=== PATIENT | female | born 1960 | race Caucasian/White ===

== ENCOUNTER → 2021-02-13 09:45 | Outpatient (CLI) | payer OTHER, SELFPAY ==
[2021-02-13 13:37] LABS: COVID19 -Nasal RAPID Negative (Negative)
== END ==
PROVIDERS: PCP Nurse Practitioner; Visit Provider Surgery
DX: Z20.822 Contact with and (suspected) exposure to COVID-19 (principal); Z01.812 Encounter for preprocedural laboratory examination
CPT/HCPCS: 87635; C9803

== ENCOUNTER 2021-02-16 15:00 | Day surgery (SDC) | payer OTHER, SELFPAY ==
[2021-02-16] VITALS (7 sets, daily range): BP systolic 108–128; BP diastolic 53–64; PULSE 64–74; RESP 12–18; TEMP 35.5–36.8; O2SAT 96–99; BMI 23.1
--- NOTE | 2021-02-16 | PATH_ITS ---
[facility] Accession Number: [id number] . 01 Material submitted: . PART A: colon - ASCENDING POLYP PART B: colon - DISTAL ASCENDING POLYP . 02 Diagnosis: A. Ascending Colon, Polyp, Biopsy: Inflammatory polyp. Negative for dysplasia and malignancy. . B. Distal Ascending Colon, Polyp, Biopsy: Tubular adenoma. BFI 02/18/2021 1404 Local . 02 Electronically signed: . Jigna Prater MD, Pathologist NPI- [id number] . 01 Gross description: . Part A: ASCENDING POLYP: Received in formalin are 2 fragment(s) of calderon, soft tissue measuring 0.7 x 0.3 x 0.2 cm to 0.4 x 0.3 x 0.3 cm submitted entirely in 1 cassette(s) Part B: DISTAL ASCENDING POLYP: Received in formalin are 2 fragment(s) of calderon, soft tissue measuring 0.4 x 0.3 x 0.2 cm to 0.4 x 0.3 x 0.2 cm submitted entirely in 1 cassette(s) /KADEN 02/17/2021 0341 Local . 02 Pathologist provided ICD-10: D12.2 . 02 CPT . 382700, [id number] Performed at: 01 [facility] [address], [place], [place] [id number] MD Steve Perez MD Phone: [phone] Performed at: 02 [facility] [address] [place], [place] [id number] MD Jigna Prater MD Phone: [phone]
--- NOTE | 2021-02-16 16:13 | PM.HP.1 ---
History of Present Illness History of Present Illness Date Patient Seen: 02/16/21 Time Patient Seen: 16:14 Chief complaint: SDC Narrative: screening colon cancer, and h/o reflux Patient History Family & Social History Social History: household members significant other Tobacco & Substance use: Smoking Status Never smoker alcohol intake frequency holiday/special occasion Meds Home Medications and Allergies Home Medications Medication Instructions Recorded Confirmed Type rosuvastatin 5 mg tablet 5 mg 02/16/21 History rosuvastatin 5 mg tablet 5 mg 02/16/21 History Allergies Allergy/AdvReac Type Severity Reaction Status Date / Time No Known Drug Allergies Allergy Verified 02/16/21 15:17 Exam Vital Signs (past 8 hours): - 02/16/21 15:26 Temperature 98.2 F Pulse Rate 64 Respiratory Rate 18 Blood Pressure 125/64 Pulse Oximetry 99 Oxygen Delivery Method Room Air Const General: cooperative Nutritional Appearance: average body habitus HENMT Head: normal to inspection Neck Neck: trachea midline Resp Effort & Inspection: normal respiratory effort and able to speak in complete sentences Cardio Rate: regular rate Rhythm: regular rhythm GI Inspection: normal to inspection Skin General: no rashes or lesions noted Neuro General: patient alert and patient awake Cognition: normal cognition Extrem General: full ROM Psych Appearance: grossly normal Judgment: judgment good Assessment & Plan Assessment & Plan narrative: colon cancer screen and chronic reflux. EGD and colonoscopy with sedation COVID-19 COVID-19 status: Negative Time Spent With Patient Time with patient: less than 30 minutes Critical Care time: I spent a total of [] minutes of critical care time on this patient's care today; this time is exclusive of procedural time.
[2021-02-16] MEDS: LIDOCAINE 4% SOLN 50 ML 20 ML TOP (16:18)
[2021-02-16] MEDS: fentaNYL 250 MCG/5 ML INJ IV (16:34)
[2021-02-16] MEDS: MIDAZOLAM 5 MG/5 ML VIAL IV (16:36)
--- NOTE | 2021-02-16 16:50 | PM.OP.ENDO ---
Operative Date/Time/Diagnoses Date of procedure: 02/16/21 Time of procedure: 16:50 Pre-op diagnosis: reflux and colon cancer screening Post-op diagnosis: same Procedure & Clinicians Study performed: EGD Same procedure as scheduled: Yes Indications: Preop diagnosis: Reflux Postop diagnosis same Operative procedure: EGD with moderate sedation Surgeon: Aurora Peters MD Anesthesia: Fentanyl and Versed, see nurse's note for dosing Findings: Mild gastritis, no ulcers, no significant hiatal hernia no Interiano's Procedure: Patient placed in lateral position. Anesthetic was administered. I then placed a EGD scope into the esophagus advanced to the stomach. I did divide the pylorus invasion into the duodenum. Insufflation and extraction of scope including a retroflex have the above findings. There were no complications during the case and we moved forward with her colonoscopy. Impression: Mild gastritis but no other abnormalities Plan: Proceed with colonoscopy Surgeon: Nanette Peters Procedure Notes SCOAP/Timeout: Done Procedure in detail: See above Findings: gastritis Specimen(s): none sent Complications: none Post-procedure Follow up: as needed Disposition: PACU
--- NOTE | 2021-02-16 17:08 | PM.OP.ENDO ---
Operative Date/Time/Diagnoses Date of procedure: 02/16/21 Time of procedure: 17:08 Pre-op diagnosis: screening for colon cancer Post-op diagnosis: same Procedure & Clinicians Study performed: Colonoscopy with hot snare polypectomy and cold forceps polypectomy Same procedure as scheduled: Yes Indications: Colon cancer screening Surgeon: Nanette Peters Procedure Notes SCOAP/Timeout: Done Procedure in detail: Preop diagnosis: Colon cancer screening Postop diagnosis: Same Operative procedure: Colonoscopy with hot snare polypectomy and cold forceps polypectomy Anesthetic: Fentanyl 250 micro g and Versed 11 mg Findings: 3 mm polyp in the proximal ascending colon marked as ascending colon taken with hot snare. A 2nd 3 mm polyp at distal ascending colon taken with cold forceps and marked distal ascending colon Procedure: Patient is placed in lateral position. Rectal exam performed showing normal tone no masses. Colonoscope inserted into the rectum and advanced to the ileocecal valve with minimal difficulty. Insufflation and extraction of the scope and the above findings. Retroflexion was performed in the rectum as well. Impression: 2 polyps identified in the ascending colon. Both taken, 1 with hot snare, 2nd with cold forceps. Both polyps 3 mm in size with adenomatous features Plan: Repeat colonoscopy in 5 years due to new diagnosis colonic polyps Scope withdrawal time: 8 minutes Sedation minutes: 29 Findings: polyp Specimen(s): other (ascending colon and distal ascending colon polyps)
== END 2021-02-16 18:00 | disposition home or self-care (01) ==
PROVIDERS: PCP Nurse Practitioner; Referring Provider Surgery; Visit Provider Surgery
PROC: 0DJ08ZZ Inspection of Upper Intestinal Tract, Via Natural or Artificial Opening Endoscopic (ICD-10-PCS; CPT 43235; principal; 2021-02-16 16:00)
PROC: 0DJD8ZZ Inspection of Lower Intestinal Tract, Via Natural or Artificial Opening Endoscopic (ICD-10-PCS; CPT 45378; 2021-02-16 16:00)
DX: D12.2 Benign neoplasm of ascending colon (principal); K51.40 Inflammatory polyps of colon without complications; K29.70 Gastritis, unspecified, without bleeding; Z12.11 Encounter for screening for malignant neoplasm of colon; K21.9 Gastro-esophageal reflux disease without esophagitis
CPT/HCPCS: 45385; 45380; 43235; 99152; 99153; J2250; J3010